=== PATIENT | female | born 1965 | race Caucasian/White ===

== ENCOUNTER → 2020-04-03 | Outpatient (CLI) | payer BC ==
[2020-04-03 10:58] LABS: HCT 42.6 % (34.0-46.0); HGB 13.9 gm/dL (11.4-16.0); MCH 30.2 pg (25.0-35.0); MCHC 32.7 g/dL (31.0-37.0); MCV 92.6 fL (80.0-100.0); Mean Platelet Volume 10.3; Platelet Count 160 k/uL (150-450); WBC 6.6 k/uL (3.8-10.6)
[2020-04-03 11:14] LABS: Appearance,Urine Clear (Clear); Bilirubin,Urine Negative (Negative); Blood,Urine Negative (Negative); Color,Urine Yellow; Glucose,Urine (UA) Negative (Negative); Ketones,Urine Negative (Negative); Leukocyte Esterase,Urine Negative (Negative); Nitrite,Urine Negative (Negative); PH, Urine 5.5 (5.0-8.0); Protein,Urine Negative (Negative); Specific Gravity,Urine 1.025 (1.001-1.035); Urobilinogen,Urine <2.0 mg/dL (<2.0)
[2020-04-03 11:31] LABS: ALT 45 U/L (4-34); AST 28 U/L (14-36); African American GFR (CKD) >90 (>60 ml/min/1.73 sqM); Albumin 4.3 g/dL (3.5-5.0); Alkaline Phosphatase 89 U/L (38-126); Anion Gap 6 mmol/L; Blood Urea Nitrogen 41 mg/dL (7-17); Calcium 9.8 mg/dL (8.4-10.2); Carbon Dioxide 28 mmol/L (22-30); Chloride 105 mmol/L (98-107); Glucose 99 mg/dL (74-99); Non-African American GFR(CKD) 84 (>60 ml/min/1.73 sqM); Potassium 4.3 mmol/L (3.5-5.1); Sodium 139 mmol/L (137-145); Total Bilirubin 0.5 mg/dL (0.2-1.3)
[2020-04-03 11:41] LABS: INR 0.9 (<1.2); Prothrombin Time 9.5 sec (9.0-12.0)
[2020-04-03 11:42] LABS: Partial Thromboplastin Time 24.2 sec (22.0-30.0)
== END | disposition home or self-care (01) ==
LOC: LABPAT 10:01
PROVIDERS: ATTEND Orthopaedic Surgery
DX: Z01.818 Encounter for other preprocedural examination (principal); Z79.01 Long term (current) use of anticoagulants; Z01.812 Encounter for preprocedural laboratory examination
CPT/HCPCS: 36415; 80053; 81003; 85027; 85610; 85730; 87070

== ENCOUNTER 2020-04-14 05:32 | Observation (INO) | payer BC ==
[2020-04-09 09:10] VITALS: BMI 47.7
[~2020-04-14 05:32] MED LIST: ACETAMINOPHEN TAB 500 MG TAB PO ONE; GABAPENTIN 300 MG CAP PO ONE; MELOXICAM 7.5 MG TAB PO ONE; TRANEXAMIC ACID 1,000 MG in SODIUM CHLORIDE 0.9% 100 ML IVPB ONE; ceFAZolin 3 GM in SODIUM CHLORIDE 0.9% 100 ML IVPB ONE
[2020-04-14] MEDS ORDERED: ONDANSETRON 4 MG/2 ML VIAL IVP ONE (05:42)
[2020-04-14] MEDS ORDERED: LIDOCAINE 1% (10MG/ML) FOR IV START INTRADERMA PRN (05:42)
[2020-04-14] MEDS ORDERED: DEXAMETHASONE SOD PHOSPHATE 4 MG/ML 1 ML VIAL IV ONE (05:42)
[2020-04-14] MEDS ORDERED: MIDAZOLAM 2 MG/2 ML VIAL IV PRN (05:42)
[2020-04-14] MEDS ORDERED: HYDROmorphone 0.5 MG/0.5 ML SYRINGE IVP PRN (05:42)
[2020-04-14] MEDS ORDERED: ROPIVACAINE 246.25 MG, EPINEPHrine 0.5 MG, KETOROLAC 30 MG, cloNIDine HCL/PF 80 MCG, WA... MISCELLANE ONE ×5 (06:00)
[2020-04-14] MEDS: LACTATED RINGERS 1,000 ML IV SCH (06:16)
[2020-04-14] MEDS ORDERED: fentaNYL (PF) 50 MCG/ML 2 ML AMP ONE (06:55)
[2020-04-14] MEDS ORDERED: PROPOFOL 10 MG/ML 20 ML VIAL IV ONE (06:55)
[2020-04-14] MEDS ORDERED: SODIUM CHLORIDE 0.9% 100 ML BAG ONE (06:55)
[2020-04-14] MEDS ORDERED: SODIUM CHLORIDE 0.9% IRRIG 1,000 ML BTL IRRIGATION ONE (06:55)
[2020-04-14] MEDS ORDERED: TRANEXAMIC ACID 1,000 MG/10 ML VIAL ONE (06:55)
[2020-04-14] MEDS ORDERED: MIDAZOLAM 2 MG/2 ML VIAL ONE (06:55)
[2020-04-14] MEDS ORDERED: HEPARIN SODIUM,PORCINE 10,000 UNIT/ML 1 ML VIAL ONE (06:55)
[2020-04-14] MEDS ORDERED: ceFAZolin 3,000 MG in SODIUM CHLORIDE 0.9% IRRIGATIO 3,000 ML IRRIGATION ONE (06:59)
[2020-04-14] MEDS ORDERED: NALOXONE 0.4 MG/ML 1 ML VIAL IV PRN (07:15)
[2020-04-14] MEDS ORDERED: HYDROcodone/APAP 5-325MG 1 EACH TAB PO PRN (07:15)
[2020-04-14] MEDS ORDERED: HYDROmorphone 0.2 MG/1 ML SYRINGE IVP PRN (07:15)
[2020-04-14] MEDS ORDERED: HYDROmorphone 1 MG/ML 1 ML SYRINGE IVP PRN (07:15)
[2020-04-14] MEDS ORDERED: diazePAM 5 MG TAB PO PRN (07:15)
[2020-04-14] MEDS ORDERED: hydrOXYzine pamoate 25 MG CAP PO PRN (07:15)
[2020-04-14] MEDS ORDERED: ONDANSETRON 4 MG/2 ML VIAL IVP PRN (07:15)
[2020-04-14] MEDS ORDERED: MAGNESIUM HYDROXIDE 2,400 MG/10 ML CUP PO PRN (07:15)
--- NOTE | 2020-04-14 08:40 | P.OP ---
Date of Procedure: 04/14/20 Preoperative Diagnosis: Severe osteoarthritis right hip Postoperative Diagnosis: Severe osteoarthritis right hip Procedure(s) Performed: Right total hip arthroplasty anterior approach Implants: But[employer] Nephew Polarstem standard size 6 [employer]hew R3, 3 hole hemispherical acetabular shell, 48 mm [employer]hew Reflection 6.5 mm cancellus screw, 20 mm 2 [employer]ts [employer]hew R3, XLPE 20 acetabular liner [employer] Nephew Oxinium femoral head 32 mm, +0 All components were press-fit. The articulation is Oxinium on polyethylene. Anesthesia: spinal Surgeon: Sameer Kidd Porter Sample Case #1: Gala Parr Estimated Blood Loss (ml): 300 (225 mL returned with Cell Saver) Pathology: other (Femoral head) Condition: stable Disposition: PACU Indications for Procedure: After failure of conservative treatment we discussed the surgical and nonsurgical treatment options at length. Patient wishes to proceed with a total hip arthroplasty with a direct anterior approach. Complications specific to this procedure were discussed at length, including but not limited to infection, leg length discrepancy, dislocation, nerve injury, and fracture. Covid-19 was also discussed at length with the patient, and they are aware of the current policies and procedures. The patient was given the option of delaying surgery, but they elect to proceed knowing these risks. Patient is aware of all these complications and informed consent was obtained Operative Findings: The operative findings are consistent with severe osteoarthritis of the right hip Description of Procedure: Patient was seen and evaluated in the preoperative area and the consent was reviewed. The operative site was marked with a skin marker. The patient was then brought to the operating room and given preoperative antibiotics intravenously. 1 g of Tranexamic acid was also given intravenously. A spinal anesthetic was administered by the anesthesia department. The patient was then placed on the Gypsum table with the bony prominences well-padded. The hip area was then prepped with a ChloraPrep solution and draped in the usual sterile fashion. A universal timeout was then performed, which confirmed the patient's name, surgical site, ALLERGIES, and procedure being performed on the consent. Next the incision site was located at 1 cm distal and 1 cm lateral to the anterior superior iliac spine. The skin and subcutaneous tissues were sharply incised. Incision was carefully dissected down to the fascia overlying the tensor fascia elias muscle. This fascia was then incised in line with the incision. Care was taken to stay laterally in order to avoid injuring the lateral femoral cutaneous nerve. Next, using blunt finger dissection, the tensor fascia elias muscle was dissected off its investing fascia. The muscle was then carefully retracted laterally with a cobra retractor over the lateral neck of the femur. Next, the circumflex vessels were identified and cauterized using the AquaMantis device. The anterior hip capsule was then exposed. The capsule was then opened and an inverted T fashion. Cobra retractors were then placed intracapsularly. The retractors were maintained intracapsular throughout the procedure. The proximal femur was then visualized. A small amount of traction was placed on the leg. The femoral neck was then osteotomized appropriate level above the lesser trochanter. A small wedge of bone was then removed from the remaining femoral head. Next, using a corkscrew the femoral head was removed from the acetabulum. On gross visual inspection, the femoral head had complete loss of articular cartilage and multiple periarticular osteophytes. The femoral head was then measured. Attention was then turned to the acetabulum. The acetabulum was exposed and any remaining labrum was excised. Sequential reaming of the acetabulum was performed using fluoroscopic guidance until there was a good bed of bleeding cancellus bone. When the appropriate size was reached, a trial was then placed. The position and fit of the trial was checked with fluoroscopy. The trial was then removed. Then, using fluoroscopic guidance, the final implant was impacted at 20 of anteversion and 40 of abduction, and fully seated in the acetabulum. 2 screws were then placed in the acetabulum. Again fluoroscopy was used to check position of the screws. Next, the liner was then impacted, with a 20 elevated liner located in the anterior superior quadrant. Component locking was confirmed. Attention was then directed to the femur. With the aid of the Gypsum table, the femur was externally rotated to approximately 130, extended, and adducted under the opposite leg. A side hook was then placed under the proximal femur, and the side hook elevator was used to elevate the proximal femur while releasing the capsule. Retractors were then placed. A capsular release was performed, as well as a release of the conjoined tendon, which afforded excellent visua lization of the proximal femur. Next, a box osteotome was used to lateralize the proximal femur. A hand crocheter was then used to locate the femoral canal. Sequential broaching was then performed with appropriate size which afforded excellent fixation in the proximal femur. A trial was then placed with appropriate head and neck, and the hip was gently reduced with the aid of the Gypsum table. Fluoroscopy was then used to check position of the components, as well as to ensure equal leg lengths. The hip was then gently dislocated and the trials were then removed. Final implants were then impacted and the hip was again reduced. Final fluoroscopic x-rays confirmed that the components were in anatomic position, as well as equal leg lengths. The hip was also taken through range of motion, and found to be stable. The hip was then copiously irrigated with antibiotic solution with pulsatile lavage. The hip was then irrigated with Irrisept solution. The soft tissues were then injected with a ropivacaine solution, which consisted of 246.25 mg of ropivacaine, 0.5 mg of epinephrine, 30 mg of Toradol, 80 g of clonidine, and 48.45 mL of sterile water, for a total of 100 mL of fluid injected. A second dose of 1 g of Tranexamic acid was also given intravenously. Any blood collected by Cell Saver was then returned to the patient at this time. The fascia was then closed with 2-0 strata fix suture. The subcutaneous tissue was closed with 3-0 Vicryl. The subcuticular tissue was closed with 3-0 strata fix suture. The skin was then closed with Exofin skin glue. After the glue and dried, and Optifoam silver impregnated dressing was applied. The patient was then transferred to the recovery room in stable condition. The dietetic assistant ELIAZAR Cavanaugh was required due to the complexity of surgery, and the need for skilled shipping assistant for positioning, draping, exposure, retraction, and closure of the wound.
--- NOTE | 2020-04-14 09:34 | XR ---
EXAMINATION TYPE: XR Hip Limited RT DATE OF EXAM: 04/14/2020 Comparison: None Clinical History: 54 year-old female Status post hip surgery, assess surgical alignment Findings: Image shows placement of right total hip arthroplasty. Both acetabular cup and femoral stem component s of the prosthesis are well seated without periprosthetic fracture. Alignment grossly anatomic. Scat tered soft tissue air related to recent operation. Impression: Uncomplicated postoperative appearance right total hip arthroplasty.
[2020-04-14] MEDS ORDERED: KETOROLAC 15 MG/ML 1 ML VIAL IVP ONE (10:54)
[2020-04-14] MEDS ORDERED: LACTATED RINGERS 1,000 ML IV ONE (11:55)
--- NOTE | 2020-04-14 13:21 | FL ---
EXAMINATION TYPE: FL guidance operating room, XR Hip Limited RT DATE OF EXAM: 04/14/2020 FLUOROSCOPY Fluoroscopy time of 1 minute 17 seconds was used during anterior right hip replacement. 2 image/s do cument/s the procedure.
[2020-04-14] MEDS: SODIUM CHLORIDE 0.9% 1,000 ML IV SCH ×2 (13:49→21:22)
[2020-04-14] MEDS: HYDROmorphone 0.5 MG/0.5 ML SYRINGE IVP PRN (13:49)
[2020-04-14] MEDS: ceFAZolin 3 GM in SODIUM CHLORIDE 0.9% 100 ML IVPB SCH (16:57)
--- NOTE | 2020-04-14 18:29 | P.CONS ---
History of Present Illness - Reason for Consult Consult date: 04/14/20 Hypertension and other chronic medical problems - Chief Complaint Right hip osteoarthritis - History of Present Illness The patient is a 54-year-old female history of right hip osteoarthritis, hype rlipidemia who states she is usually in good state of health. The patient was suffering from right hip pain and this failed conservative therapy. She was electively admitted and is status post right hip arthroplasty. The patient was seen postoperatively she denies any pain, any nausea or vomiting. Patient states she has been up to bathroom. She denies any shortness of breath. She denies chest pain. Patient states she has a history of smoking but has quit many years she drinks alcohol occasionally. She states currently her pain is controlled and denies any other concerns. Review of Systems Complete review of systems is done and negative other as stated above Past Medical History Past Medical History: GERD/Reflux, Hypertension, Osteoarthritis (OA) Additional Past Medical History / Comment(s): heart murmur History of Any Multi-Drug Resistant Organisms: None Reported Past Surgical History: No Surgical Hx Reported Additional Past Surgical History / Comment(s): dental procedures Past Anesthesia/Blood Transfusion Reactions: No Reported Reaction, Motion Sickness Additional Past Anesthesia/Blood Transfusion Reaction / Comm: no hx blood transfusion Past Psychological History: Anxiety Additional Psychological History / Comment(s): tearful with recent loss of close friend Smoking Status: Former smoker Past Alcohol Use History: Occasional Additional Past Alcohol Use History / Comment(s): quit smoking approx 2009,smoked infrequently Past Drug Use History: None Reported - Past Family History Mother Family Medical History: No Reported History Medications and Allergies Home Medications Medication Instructions Recorded Confirmed Type Citalopram Hydrobromide 40 mg PO HS 04/09/20 04/14/20 History [Citalopram HBr] Glucosamine/Chondr Rodrigues A Sod [Osteo 2 each PO HS 04/09/20 04/14/20 History Bi-Flex Caplet] LORazepam [Ativan] 0.5 mg PO BID PRN 04/09/20 04/14/20 History Lisinopril [Prinivil] 10 mg PO QAM 04/09/20 04/14/20 History Magnesium 500 mg PO DAILY 04/09/20 04/14/20 History Meloxicam 15 mg PO DAILY 04/09/20 04/14/20 History Metoprolol Succinate (ER) [Toprol 50 mg PO QAM 04/09/20 04/14/20 History Xl] Multivit-Min/Iron/Folic/Lutein 1 each PO HS 04/09/20 04/14/20 History [Centrum Silver Women Tablet] [place]-3 Fatty Acids/Fish Oil [Fish 1 each PO HS 04/09/20 04/14/20 History Oil 1,000 mg Softgel] Omeprazole 20 mg PO QAM 04/09/20 04/14/20 History traMADol HCL [Ultram] 50 mg PO Q6HR PRN 04/09/20 04/14/20 History Allergies Allergy/AdvReac Type Severity Reaction Status Date / Time No Known Allergies Allergy Verified 04/09/20 08:54 Physical Exam Vitals: Vital Signs Temp Pulse Pulse Resp BP Pulse Ox 04/14/20 14:31 98.3 F 71 16 106/64 93 L 04/14/20 13:00 98.2 F 70 16 119/72 95 04/14/20 12:01 64 18 146/71 97 04/14/20 11:31 63 18 136/62 98 04/14/20 11:00 69 18 123/69 100 04/14/20 10:31 66 18 134/70 99 04/14/20 10:01 59 L 16 129/70 100 04/14/20 09:46 57 L 16 121/70 100 04/14/20 09:31 56 L 18 119/59 99 04/14/20 09:15 60 18 117/60 98 04/14/20 08:54 97 F L 58 L 16 140/71 96 04/14/20 06:01 956.4 F H 72 18 144/66 97 Intake and Output 04/14/20 04/14/20 04/14/20 06:59 14:59 22:59 Intake Total 701 825 Output Total 300 Balance 701 525 Intake: IV 701 500 Intake, IV Titration 70 Amount Sodium Chloride 0.9% 1, 70 000 ml @ 70 mls/hr IV . [id number] [facility] Rx#:[id number] Oral 255 Output: Estimated Blood Loss 300 Other: # Voids 1 Weight 136 kg 136 kg - Constitutional General appearance: no acute distress - EENT Eyes: PERRLA - Respiratory Respiratory: bilateral: CTA - Cardiovascular Rhythm: regular - Gastrointestinal General gastrointestinal: normal bowel sounds - Integumentary Integumentary: normal - Neurologic Neurologic: CNII-XII intact - Musculoskeletal Musculoskeletal: strength equal bilaterally - Psychiatric Psychiatric: appropriate affect Assessment and Plan (1) Hypertension Narrative/Plan: Continue outpatient regiment and titrate as needed Current Visit: Yes Status: Acute Code(s): I10 - ESSENTIAL (PRIMARY) HYPERTENSION SNOMED Code(s): 10560050 (2) Anxiety Narrative/Plan: Optimize as needed Current Visit: Yes Status: Acute Code(s): F41.9 - ANXIETY DISORDER, UNSPECIFIED SNOMED Code(s): 99762180 (3) GERD (gastroesophageal reflux disease) Narrative/Plan: continue outpatient regimen Current Visit: Yes Status: Acute Code(s): K21.9 - GASTRO-ESOPHAGEAL REFLUX DISEASE WITHOUT ESOPHAGITIS SNOMED Code(s): 516241812 Plan: Continue home medications, pain control, thank you we will follow along and medically optimize as needed
[2020-04-14] MEDS: HYDROcodone/APAP 5-325MG 1 EACH TAB PO PRN (20:37)
[2020-04-14] MEDS: ASPIRIN 325 MG TAB PO SCH (20:37)
[2020-04-14] MEDS ORDERED: NON FORMULARY DRUG (Glucosamine/Chondr Su A Sod [Osteo Bi-Flex Caplet] 1 EACH Tablet) PO SCH (21:00)
[2020-04-14] MEDS ORDERED: SENNOSIDES-DOCUSATE SODIUM 1 EACH TAB PO SCH (21:00)
[2020-04-14] MEDS ORDERED: CITALOPRAM HYDROBROMIDE 20 MG TAB PO SCH (21:00)
[2020-04-14] MEDS ORDERED: NON FORMULARY DRUG (Omega-3 Fatty Acids/Fish Oil [Fish Oil 1,000 Mg Softgel] 1 EACH Capsul PO SCH (21:00)
[2020-04-14] MEDS ORDERED: MULTIVITAMINS, THERA 1 EACH TAB PO SCH (21:00)
[2020-04-15] MEDS: ceFAZolin 3 GM in SODIUM CHLORIDE 0.9% 100 ML IVPB SCH (00:28)
[2020-04-15] MEDS: HYDROcodone/APAP 5-325MG 1 EACH TAB PO PRN ×2 (01:45→12:40)
[2020-04-15] MEDS: LACTATED RINGERS 1,000 ML IV SCH (05:12)
[2020-04-15 07:20] LABS: Basophils % (A) 0 %; Eosinophils # (A) 0.1 k/uL (0-0.7); Eosinophils % (A) 1 %; HCT 36.8 % (34.0-46.0); HGB 11.9 gm/dL (11.4-16.0); Lymphocytes # (A) 1.1 k/uL (1.0-4.8); Lymphocytes % (A) 16 %; MCHC 32.3 g/dL (31.0-37.0); MCV 92.9 fL (80.0-100.0); Mean Platelet Volume 9.6; Monocytes # (A) 0.3 k/uL (0-1.0); Monocytes % (A) 4 %; Neutrophils # (A) 5.4 k/uL (1.3-7.7); Neutrophils % (A) 78 %; Platelet Count 164 k/uL (150-450); RBC 3.96 m/uL (3.80-5.40); WBC 6.9 k/uL (3.8-10.6)
[2020-04-15] MEDS ORDERED: PANTOPRAZOLE 40 MG TABLET PO SCH (07:30)
[2020-04-15] MEDS: ASPIRIN 325 MG TAB PO SCH (08:02)
[2020-04-15] MEDS: HYDROmorphone 0.5 MG/0.5 ML SYRINGE IVP PRN (08:02)
[2020-04-15 08:04] VITALS: BP 116/65; RESP 19; TEMP 98.8
[2020-04-15] MEDS ORDERED: MAGNESIUM OXIDE 400 MG TAB PO SCH (09:00)
[2020-04-15] MEDS ORDERED: MELOXICAM 7.5 MG TAB PO SCH ×2 (09:00)
[2020-04-15] MEDS ORDERED: lisinopriL 10 MG TAB PO SCH (09:00)
[2020-04-15] MEDS ORDERED: METOPROLOL SUCCINATE (ER) 50 MG TAB.ER.24H PO SCH (09:00)
--- NOTE | 2020-04-15 09:51 | P.PN ---
Subjective Progress Note Date: 04/15/20 Principal diagnosis: right hip pain Patient is a 54-year-old female with a history of GERD, hypertension, and osteoarthritis who presented for elective right total hip arthroplasty. Patient seen and examined at bedside. Her pain is slightly increased compared to yesterday but still feeling good, has been up and worked with physical therapy done the stairs. Denies any chest pain, nausea, vomiting, or shortness of breath. General: non toxic, no distress, appears at stated age Derm: warm, dry Head: atraumatic, normocephalic, symmetric Eyes: EOMI, no lid lag, anicteric sclera Mouth: no lip lesion, mucus membranes moist Cardiovascular: S1S2 reg, no murmur, positive posterior tibial pulse bilateral, Lungs: CTA bilateral, no rhonchi, no rales , no accessory muscle use Abdominal: soft, nontender to palpation, no guarding, no appreciable organomegaly Ext: no gross muscle atrophy, no edema, no contractures Neuro: CN II-XI grossly intact, no focal neuro deficits Psych: Alert, oriented, appropriate affect Patient is a 54-year-old female status post right total hip arthroplasty 1. Hypertension 2. GERD 3. Anxiety Blood work reviewed no evidence of acute blood loss anemia. Blood pressure is well controlled. Patient will resume all home medications with the exception of meloxicam and glucosamine, as well as Ultram which was left at the discretion of orthopedic surgery. Medication reconciliation addressed. Patient was informed that if her acid reflux flares while taking aspirin 325 twice daily she can of her omeprazole from 20 mg once daily to 20 mg twice daily this is also included in her discharge instructions. medically optimized for discharge Objective - Vital Signs Vital signs: Vital Signs Temp 98.8 F 04/15/20 07:00 Pulse 86 04/15/20 07:00 Resp 19 04/15/20 07:00 BP 116/65 04/15/20 07:00 Pulse Ox 96 04/15/20 07:00 Intake & Output 04/14/20 04/15/20 04/15/20 18:59 06:59 18:59 Intake Total 825 200 Output Total 300 Balance 525 200 Weight 136 kg Intake: IV 500 Intake, IV Titration 70 Amount Sodium Chloride 0.9% 1, 70 000 ml @ 70 mls/hr IV . [id number] [facility] Rx#:[id number] Oral 255 200 Output: Estimated Blood Loss 300 Other: Voiding Method Toilet Toilet # Voids 1 2 - Labs CBC & Chem 7: 04/15/20 06:39
[2020-04-15 09:53] VITALS: PULSE 71
--- NOTE | 2020-04-15 10:08 | P.DS ---
Providers Date of admission: 04/15/20 09:35 Expected date of discharge: 04/15/20 Attending physician: Sameer Kidd Consults: 04/14/20 07:15 Consult Physician Routine Consulting Provider: Chandra Browne Consult Reason/Comments: medical management Do you want consulting provider notified?: Yes Primary care physician: Demetri Baum - Discharge Diagnosis(es) (1) Osteoarthritis of right hip Current Visit: Yes Status: Acute (2) S/P total hip arthroplasty Current Visit: Yes Status: Acute Hospital Course: This is a 54-year-old female with known history of degenerative arthritis of the right hip. The patient presented for evaluation as an outpatient. After discussion and consideration patient elects to proceed with total hip arthroplasty. The patient is seen preoperatively by Dr. Kidd and medically cleared for surgery by their primary care physician. Patient is admitted to [facility] on 04/14/2020 for total hip arthroplasty. The procedure is performed without complication or sequelae. The patient is doing well postoperatively. Labs and vital signs are stable on day of discharge. On day of discharge patient's hip incision is healing well. There is minimal erythema. There is no drainage noted at this time. There is minimal soft tissue swelling to the hip and thigh. Patient has full foot and ankle motion without difficulty or pain. Calf is soft and nontender to palpation. Neurovascular status to the right lower extremity is intact. Patient is discharged home in good condition. Opioid start talking form is reviewed and signed. Please see med rec for accurate list of home medications. Plan - Discharge Summary Discharge Rx Participant: No New Discharge Prescriptions: New Aspirin 325 mg PO BID #60 tab HYDROcodone/APAP 5-325MG [[place] 5-325] 1 - 2 tab PO Q6HR PRN #48 tab PRN Reason: Pain Sennosides [Senokot] 2 tab PO DAILY PRN #60 tablet PRN Reason: Constipation Continue Multivit-Min/Iron/Folic/Lutein [Centrum Silver Women Tablet] 1 each PO HS Magnesium 500 mg PO DAILY Citalopram Hydrobromide [Citalopram HBr] 40 mg PO HS Omeprazole 20 mg PO QAM Lisinopril [Prinivil] 10 mg PO QAM Metoprolol Succinate (ER) [Toprol XL] 50 mg PO QAM [place]-3 Fatty Acids/Fish Oil [Fish Oil 1,000 mg Softgel] 1 each PO HS LORazepam [Ativan] 0.5 mg PO BID PRN PRN Reason: Anxiety No Action Glucosamine/Chondr Rodrigues A Sod [Osteo Bi-Flex Caplet] 2 each PO HS Meloxicam 15 mg PO DAILY traMADol HCL [Ultram] 50 mg PO Q6HR PRN PRN Reason: Pain Discharge Medication List Citalopram Hydrobromide [Citalopram HBr] 40 mg PO HS 04/09/20 [History] Glucosamine/Chondr Rodrigues A Sod [Osteo Bi-Flex Caplet] 2 each PO HS 04/09/20 [History] LORazepam [Ativan] 0.5 mg PO BID PRN 04/09/20 [History] Lisinopril [Prinivil] 10 mg PO QAM 04/09/20 [History] Magnesium 500 mg PO DAILY 04/09/20 [History] Meloxicam 15 mg PO DAILY 04/09/20 [History] Metoprolol Succinate (ER) [Toprol XL] 50 mg PO QAM 04/09/20 [History] Multivit-Min/Iron/Folic/Lutein [Centrum Silver Women Tablet] 1 each PO HS 04/09/20 [History] [place]-3 Fatty Acids/Fish Oil [Fish Oil 1,000 mg Softgel] 1 each PO HS 04/09/20 [History] Omeprazole 20 mg PO QAM 04/09/20 [History] traMADol HCL [Ultram] 50 mg PO Q6HR PRN 04/09/20 [History] Aspirin 325 mg PO BID #60 tab 04/15/20 [Rx] HYDROcodone/APAP 5-325MG [[place] 5-325] 1 - 2 tab PO Q6HR PRN #48 tab 04/15/20 [Rx] Sennosides [Senokot] 2 tab PO DAILY PRN #60 tablet 04/15/20 [Rx] Follow up Appointment(s)/Referral(s): Gala Parr PAC [PHYSICIAN STATE [employer]OOPER] - 04/30/20 1:30 pm [facility], [NON-STAFF] - As Needed Demetri Baum MD [Primary Care Provider] - 1 Week Activity/Diet/Wound Care/Special Instructions: Special Instructions: If your acid reflux acts up, you can increase your Omeprazole 20 mg from once daily to twice daily. Weightbearing as tolerated with walker. Leave dressing intact. Dressing may be removed by home care nurse or by patient in 10 days. May shower with dressing on. Please take aspirin 325mg twice daily for 30 days to prevent blood clots. Recommend use of compression stockings daily until follow up to help prevent swelling and blood clots. May remove at night before sleeping. Please follow-up with [facility] in 2 weeks and call with any questions or concerns, . Discharge Disposition: HOME WITH HOME HEALTH SERVICES
== END 2020-04-15 13:45 | disposition home health service (06) ==
LOC: OR 05:32 → 4SSUR 08:43 → OR 04-15 09:35 → 4SSUR 04-15 09:35
PROVIDERS: ADMIT Orthopaedic Surgery; ATTEND Orthopaedic Surgery
DX: M16.11 Unilateral primary osteoarthritis, right hip (principal); K21.9 Gastro-esophageal reflux disease without esophagitis; I11.9 Hypertensive heart disease without heart failure; K59.00 Constipation, unspecified; E78.5 Hyperlipidemia, unspecified; E78.00 Pure hypercholesterolemia, unspecified; F41.1 Generalized anxiety disorder; I34.0 Nonrheumatic mitral (valve) insufficiency; Z87.891 Personal history of nicotine dependence; Z79.899 Other long term (current) drug therapy; Z79.1 Long term (current) use of non-steroidal anti-inflammatories (NSAID); Z79.891 Long term (current) use of opiate analgesic; F32.9 Major depressive disorder, single episode, unspecified; Z82.49 Family history of ischemic heart disease and other diseases of the circulatory system
CPT/HCPCS: 97116; 97110; 97161; 97535; 97166; 86891; 85025; 73501; 27130; G0378; P9022; C1776; J2250; J0171; J1644; J1100; J0690 ×3; J2405; J3010; J1885 ×2; J2795; J2704; J0735; J1170 ×2; 86850; 86900; 86901; 88300